=== PATIENT | male | born 1990 | race Caucasian/White ===

== ENCOUNTER 2023-05-01 01:44 | Emergency (ER) | payer OTHER ==
--- NOTE | 2023-05-01 02:01 | ED ---
Psych HPI <Brianne Pleitez - Last Filed: 05/01/23 02:48> <Oscar Aleman - Last Filed: 05/01/23 04:11> - General Chief Complaint: Psychiatric Symptoms Stated Complaint: Mental Health Time Seen by Provider: 05/01/23 01:55 - History of Present Illness Initial Comments: Patient is a 32-year-old male presenting to the emergency room via EMS from [facility] with a petition stating that patient is pacing the halls and is having auditory hallucinations. There is no evidence of harmful thoughts to self or others on the petition consequently there is no indication to on a petition for psychiatric evaluation. Patient admits to being at [facility] as a court order after a property damage and is currently being treated for THC, alcohol and nicotine however he has not drank any alcohol since 2020. He does admit to daily THC use and has no intention of quitting this product. He was recently hospitalized at [facility] and was discharged out on medications to treat his bipolar disorder. He reports no changes in auditory hallucinations since his discharge from the facility and states that his auditory hallucinations have never improved with medication. He is planning on moving in hoping to establish with a psychiatrist at his new location but is not currently following with psychiatry. With the exception of his sepsis abuse history and his mental health diagnoses he has no other significant past medical history. (Brianne Pleitez) Review of Systems ROS Other: All systems not noted in ROS Statement are negative. <Brianne Pleitez - Last Filed: 05/01/23 02:48> ROS Other: All systems not noted in ROS Statement are negative. <Oscar Aleman - Last Filed: 05/01/23 04:11> ROS Statement: Those systems with pertinent positive or pertinent negative responses have been documented in the HPI. Past Medical History Past Medical History: No Reported History History of Any Multi-Drug Resistant Organisms: None Reported Past Surgical History: No Surgical Hx Reported Past Anesthesia/Blood Transfusion Reactions: No Reported Reaction Past Psychological History: Bipolar Smoking Status: Current every day smoker Past Alcohol Use History: Abuse (Last strength 2020) Past Drug Use History: Marijuana <Brianne Pleitez - Last Filed: 05/01/23 02:48> General Exam <Brianne Pleitez - Last Filed: 05/01/23 02:48> - General Exam Comments Initial Comments: GENERAL: No acute distress, well developed, well nourished. HEENT: Normocephalic, atraumatic. Pupils equal, round, reactive to light. Moist mucous membranes. LUNGS: No respiratory distress or use of accessory muscles. HEART: Regular rate. ABDOMEN: Non-distended. BACK: Normal inspection. EXTREMITIES: No edema. No tenderness. Moves all extremities. NEUROLOGIC: Alert & oriented x 3. CN II-XII grossly intact. PSYCHIATRIC: Normal affect and behavior. Reports auditory hallucinations without any internal stimuli response. DERMATOLOGIC: Skin intact, without rashes or lesions noted. (Brianne Pleitez) Course Vital Signs 05/01/23 01:59 Temperature 97.9 F Pulse Rate 86 Respiratory 16 Rate Blood Pressure 156/100 O2 Sat by Pulse 100 Oximetry Medical Decision Making <Brianne Pleitez - Last Filed: 05/01/23 02:48> <Oscar Aleman - Last Filed: 05/01/23 04:11> - Medical Decision Making Was pt. sent in by a medical professional or institution (, PA, [employer], urgent ca re, hospital, or skilled nursing...) When possible be specific @ -Yes, from [facility]. Did you speak to anyone other than the patient for history (EMS, parent, family, police, friend...)? What history was obtained from this source @ -No Did you review nursing and triage notes (agree or disagree)? Why? @ -I reviewed and agree with nursing and triage notes Were old charts reviewed (outside hosp., previous admission, EMS record, old EKG, old radiological studies, urgent care reports/EKG's, skilled nursing records)? Report findings @ -Yes, I reviewed reports that from [facility] including current medications, petition completed by staff and demographic information including substance abuse history and reason for intake. Differential Diagnosis (chest pain, altered mental status, abdominal pain women, abdominal pain men, vaginal bleeding, weakness, fever, dyspnea, syncope, headache, dizziness, GI bleed, back pain, seizure, CVA, palpatations, mental health, musculoskeletal)? @ -Differential Mental Health Depression, anxiety, bipolar, psychosis, schizophrenia, borderline personality, situational depression, adjustment disorder, behavioral disorder, brain tumor, malingering, substance abuse, encephalopathy, medication reaction, dementia, hypothyroidism, degenerative neurologic disorder, lupus.... This is not meant to be all-inclusive list EKG interpreted by me (3pts min.). @ -None done X-rays interpreted by me (1pt min.). @ -None done CT interpreted by me (1pt min.). @ -None done U/S interpreted by me (1pt. min.). @ -None done What testing was considered but not performed or refused? (CT, X-rays, U/S, labs)? Why? @ -None What meds were considered but not given or refused? Why? @ -None Did you discuss the management of the patient with other professionals (professionals i.e. , PA, [employer], lab, RT, psych nurse, oncology social work, repair armature winder, teacher, trust officer, case sealer)? Give summary @ -No Was smoking cessation discussed for >3mins.? @ -No Was critical care preformed (if so, how long)? @ -No Were there social determinants of health that impacted care today? How? (Homelessness, low income, unemployed, alcoholism, drug addiction, transportation, low edu. Level, literacy, decrease access to med. care, mcc, rehab)? @ -No Was there de-escalation of care discussed even if they declined (Discuss DNR or withdrawal of care, Hospice)? DNR status @ -No What co-morbidities impacted this encounter? (DM, HTN, Smoking, COPD, CAD, Cancer, CVA, ARF, Chemo, Hep., AIDS, mental health diagnosis, sleep apnea, morbid obesity)? @ -Bipolar disorder Was patient admitted / discharged? Hospital course, mention meds given and route, prescriptions, significant lab abnormalities, going to OR and other pertinent info. @ -32-year-old male presenting to the emergency room via EMS from [facility] requiring evaluation for "pacing" the martinez and having auditory hallucinations which are chronic for him. He denies in there is no documentation of self-harm or harm to others or intent. He denies any visual hallucinations. He is not currently going through withdrawals of any substance as he has not had a drink since 2020 and is on other illicit substance use is marijuana. There is no evidence of development petition documentation requiring psychiatric evaluation. There is no indication for diagnostic imaging or laboratory studies or medication administration. Patient has been medically cleared for return to rehabilitation's site to continue his rehabilitation services per his court order along with his psychiatric medications. Will discharge home in stable condition to return back to inpatient rehabilitation services at [facility] advising continuation of current treatment regimen for bipolar disorder. Undiagnosed new problem with uncertain prognosis? @ -No Drug Therapy requiring intensive monitoring for toxicity (Heparin, Nitro, Insulin, Cardizem)? @ -No Were any procedures done? @ -No Diagnosis/symptom? @ -Bipolar disorder with auditory hallucinations Acute, or Chronic, or Acute on Chronic? @ -Chronic Uncomplicated (without systemic symptoms) or Complicated (systemic symptoms)? @ -default Side effects of treatment? @ -No Exacerbation, Progression, or Severe Exacerbation? @ -No Poses a threat to life or bodily function? How? (Chest pain, USA, NV, pneumonia, PE, COPD, DKA, ARF, appy, cholecystitis, CVA, Diverticulitis, Homicidal, Suicidal, threat to staff... and all critical care pts) @ -No Case discussed with Dr. Aleman. (Brianne Pleitez) Patient was originally discussed with me and evaluated by me as well as my mid- level provider Brianne Pleitez. I evaluated the patient, he is not a danger to himself or others. He chronically has auditory hallucinations which are unchanged from baseline. They are not telling him to hurt anyone. He was sent here from [facility] rehab over concern for pacing the halls. No concern for threats to staff or himself. Patient does state this is what happened, he states they told him he was being brought here for evaluation. He has no acute complaints at this time. Denies any suicidal ideations or attempts or plans. Denies any homicidal ideations or attempts or plans. Denies any visual hallucinations. He endorses chronic auditory hallucinations which are unchanged from his baseline. He has been compliant with medications. When myself as well as my mid-level provider originally medically cleared the patient, as he is not a danger to himself or others and can return to the facility [facility] refused to accept the patient. Nursing staff talked with their clay preparation supervisor Hayley who said that the healthy and has reviewed the chart. We did discuss this with them that they continue to request psychiatric evaluation and continued to refuse patient transferred back to their facility. To appease [facility], despite the patient being medically cleared and not requiring psychiatric evaluation by EPS, I did speak with EPS and they agreed to come evaluate the patient. EPS Mechelle evaluated the patient, and discussed the case with on-call psychiatrist Dr. Medina. They agree with our assessment that patient is cleared from a psychiatric standpoint for return to [facility] and recommend follow-up with psychiatric services on an outpatient basis. He does not meet any form of inpatient criteria for psychiatric admission. At this time patient is both medically cleared and psychiatrically cleared for discharge back to [facility] once again. [facility] once again was getting pushed back returning the patient back to their facility. We discussed that the patient is both medically and psychiatrically cleared.patient does not require admission or being held here at our emergency department. Patient will be discharged back to [facility] in good condition. (Oscar Aleman) Disposition Is patient prescribed a controlled substance at d/c from ED?: No Time of Disposition: 02:00 <Brianne Pleitez - Last Filed: 05/01/23 02:48> <Oscar Aleman - Last Filed: 05/01/23 04:11> Clinical Impression: Bipolar 1 disorder Disposition: HOME SELF-CARE Condition: Stable Instructions (If sedation given, give patient instructions): Bipolar Disorder (ED) Additional Instructions: Please continue your current psychiatric medication regiment. It is recommended that you contact your local psychiatric group and schedule an appointment for continuation of your bipolar medication. Please return to the Emergency Department if symptoms worsen or any other concerns. Referrals: None,Stated [Primary Care Provider] - 1-2 days
[2023-05-01 02:03] VITALS: TEMP 97.9
[2023-05-01 08:57] VITALS: BP 123/83; PULSE 94; RESP 18
== END 2023-05-01 08:56 | disposition home or self-care (01) ==
LOC: EC 01:44
DX: F31.9 Bipolar disorder, unspecified (principal); F12.90 Cannabis use, unspecified, uncomplicated; F17.200 Nicotine dependence, unspecified, uncomplicated
CPT/HCPCS: 82075; 99284